=== PATIENT | male | born 1970 | race Two or more races ===

== ENCOUNTER 2020-01-30 18:58 | Emergency (ER) | payer OTHER ==
[~2020-01-30] VITALS: Ht 180.3 cm; Wt 89.8 kg
[2020-01-30] MEDS ORDERED: VISTARIL50 MG PO (22:03)
== END 2020-01-30 22:27 | disposition home or self-care (01) ==
LOC: ER 18:58
DX: R00.2 Palpitations (principal); F41.0 Panic disorder [episodic paroxysmal anxiety]; Z03.818 Encounter for observation for suspected exposure to other biological agents ruled out

== ENCOUNTER 2020-04-11 10:27 | Emergency (ER) | payer OTHER ==
[~2020-04-11] VITALS: Ht 182.9 cm; Wt 90.7 kg
[~2020-04-11 10:27] MED LIST: VISTARIL50 MG PO
[2020-04-11] MEDS ORDERED: ANALPRAM HC 2.530 GM RECTAL (11:19)
[2020-04-11] MEDS ORDERED: DICLOFENAC SODI75 MG PO (11:19)
== END 2020-04-11 11:42 | disposition home or self-care (01) ==
LOC: ER 10:27
DX: K64.4 Residual hemorrhoidal skin tags (principal); K62.89 Other specified diseases of anus and rectum

== ENCOUNTER 2020-04-24 15:33 | Day surgery (SDC) | payer OTHER ==
[~2020-04-24] VITALS: Ht 180.3 cm; Wt 86.2 kg
--- NOTE | 2020-04-24 11:56 | NUR ---
PACIENTE ALERTA Y ORIENTADO EN MARITZA YUMIKO ESFERAS, REFIERE POSIBLE FISURA ANAL, PACIENTE REFIERE DOLOR EN EL ANO DESDE HACE YUMIKO SEMANAS. PACIENTE PRESENTA REFERIDO MEDICO DEL DR CHASE CHAVEZ.
--- NOTE | 2020-04-24 12:49 | NUR ---
PACIENTE ALERTA Y ORIENTADO EN MARITZA YUMIKO ESFERAS. MS. ANTOINEA ORIENTA A PACIENTE SOBRE PROCEDIMIENTO Y TX, REFIERE ENTENDER., EXTRAE MUESTRAS DE LABORATORIO CON MEDIDAS ASEPTICAS Y ENVIA A LABORATORIO. ADMINISTRA [facility]ICAMENT[facility]DEN MEDICA.
--- NOTE | 2020-04-24 13:19 | NUR ---
SE REALIZA EKG, SE PRESENTA A .
[~2020-04-24 15:33] MED LIST changes: +ANALPRAM HC 2.530 GM RECTAL; +DICLOFENAC SODI75 MG PO
[2020-04-25] MEDS ORDERED: HYDROCORT-PRAMO30 G1 (08:12)
[2020-04-25] MEDS ORDERED: DICLOFENAC SODI75 MG (08:12)
== END 2020-04-24 22:00 | disposition home or self-care (01) ==
LOC: O/R 15:33 → SEC-K 15:33 → CIR.AMB 15:33 → SURH 15:33 → O/R 15:33 → EDSTATUS 16:00 → O/R 18:58 → SURH 18:58 → O/R 20:25 → CIR.AMB 22:00
PROVIDERS: ATTEND Surgery
DX: K60.5 Anorectal fistula (principal); K64.5 Perianal venous thrombosis; Z20.822 Contact with and (suspected) exposure to COVID-19

== ENCOUNTER 2023-01-31 11:37 | Emergency (ER) | payer OTHER ==
[~2023-01-31] VITALS: Ht 182.9 cm; Wt 96.2 kg
[~2023-01-31 11:37] MED LIST changes: +DICLOFENAC SODI75 MG; +HYDROCORT-PRAMO30 G1
[2023-01-31] MEDS ORDERED: ATORVASTATIN CA40 MG PO (12:00)
[2023-01-31 14:04] LABS: HEMATOCRIT 43.3 % (39.0-48.0); HEMOGLOBIN 14.1 g/dL (13-16.00); MEAN CELL VOLUME 87.6 fL (80.0-100.00); MEAN CORPUSCULAR HEMOGLOBIN 28.6 pg (27.00-32.0); MEAN CORPUSCULAR HGB CONC 32.6 g/dl (32.0-36.0); PLATELET COUNT 250 K/uL (150-450); RED BLOOD COUNT 4.94 M/uL (4.00-6.00)
== END 2023-01-31 16:28 | disposition home or self-care (01) ==
LOC: ER 11:37
DX: R10.9 Unspecified abdominal pain (principal)

== ENCOUNTER 2024-11-24 16:42 | Emergency (ER) | payer OTHER ==
[~2024-11-24] VITALS: Ht 180.3 cm; Wt 88.5 kg
[~2024-11-24 16:42] MED LIST changes: +ATORVASTATIN CA40 MG PO
[2024-11-24] MEDS ORDERED: KETOROLAC TROMETHAMINE 60 MG VIAL IM ONE ×2 (17:45→17:47)
[2024-11-24 17:53] LABS: BASO % 0.3 % (0.1-1.2); EOS # 0.09 (0.04-0.54); EOS % 1.1 % (0.7-7.0); LYMPH # 2.83 (1.18-3.74); LYMPH % 36.0 % (19.3-53.1); MEAN PLATELET VOLUME 10.10 fl (9.4-12.4); MONO # 0.73 (0.24-0.82); MONO % 9.3 % (4.7-12.5); NEUT # 4.17 (1.56-6.13); NEUT % 53.0 % (34.0-71.1); RED CELL DISTRIBUTION WIDTH 13.2 % (11.6-14.4)
[2024-11-24 18:19] LABS: ALT/SGPT 43.0 U/L (12-78); AST/SGOT 31.0 U/L (15-37); BILIRUBIN TOTAL 0.89 mg/dL (0.3-1.2); BUN CREA RATIO 17.0 (7.0-25.0); CREATININE SERUM 1.06 mg/dL (0.70-1.30); GFR 73.36; GLOBULINA 3.4 G/DL (2.4-3.5); GLUCOSE FASTING 82.0 mg/dL (65-100); OSMOLALITY SERUM 282.0 MOSM/KG (275-295)
[2024-11-24 19:28] LABS: URINE APPEARANCE Clear; URINE BILIRRUBIN Negative (NEGATIVE); URINE BLOOD Negative; URINE COLOR Yellow; URINE GLUCOSE Negative (NEGATIVE); URINE KETONE Negative (NEGATIVE); URINE LEUKOCYTE Negative; URINE NITRATE Negative; URINE PROTEIN Negative (NEGATIVE); URINE UROBILINOGEN 0.2 E.U./dl
[2024-11-24 19:31] LABS: URINE RBC 2.4 uL (0.0-20.8)
[2024-11-24 19:43] LABS: URINE BACTERIA 2.3 uL (0.0-1933); URINE CAST 0.00 uL (0.0-1.40); URINE EPITHELIAL CELLS 1.0 uL (0.0-38.8); URINE WBC 0.6 uL (0.0-23.2)
== END 2024-11-24 20:16 | disposition home or self-care (01) ==
LOC: ER 16:42
PROVIDERS: General Practice
DX: R10.9 Unspecified abdominal pain (principal)